=== PATIENT | female | born 1960 | race Two or more races ===

== ENCOUNTER 2017-11-24 08:57 | Outpatient (CLI) | payer OTHER ==
[~2017-11-24 08:57] MED LIST: ATACAND16 MG; KETO10TA2 PO; ORPHENADRINE C100 MG PO
== END 2017-11-24 09:27 | disposition home or self-care (01) ==
LOC: RAD 501 08:57
DX: M20.41 Other hammer toe(s) (acquired), right foot (principal); M20.42 Other hammer toe(s) (acquired), left foot

== ENCOUNTER 2024-10-07 08:46 | Emergency (ER) | payer OTHER ==
[~2024-10-07] VITALS: Ht 160 cm; Wt 75.3 kg
[2024-10-07] MEDS ORDERED: ROSUVASTATIN CA20 MG PO (09:14)
[2024-10-07] MEDS ORDERED: BARIUM SULFATE 450 ML ORAL.SUSP PO ONE ×2 (09:32→09:33)
[2024-10-07] MEDS ORDERED: ONDANSETRON HCL 2 MG/ML VIAL ONE ×5 (09:58→10:17)
[2024-10-07 10:21] LABS: BASO % 0.5 % (0.1-1.2); EOS # 0.04 (0.04-0.54); EOS % 0.3 % (0.7-7.0); HEMATOCRIT 43.3 % (34.1-44.9); HEMOGLOBIN 14.5 g/dL (11.2-15.7); LYMPH # 1.94 (1.18-3.74); LYMPH % 13.8 % (19.3-53.1); MEAN CORPUSCULAR HEMOGLOBIN 29.4 pg (25.6-32.2); MONO # 1.01 (0.24-0.82); MONO % 7.2 % (4.7-12.5); NEUT # 10.92 (1.56-6.13); NEUT % 77.8 % (34.0-71.1); PLATELET COUNT 299 K/uL (163-369); RED BLOOD COUNT 4.93 M/uL (3.93-5.22); RED CELL DISTRIBUTION WIDTH 13.3 % (11.6-14.4)
[2024-10-07 10:44] LABS: PH,URINE 5.5 (5.0-8.0); URINE APPEARANCE Clear; URINE BILIRRUBIN Small (NEGATIVE); URINE BLOOD Negative; URINE COLOR Dark Yellow; URINE GLUCOSE Negative (NEGATIVE); URINE LEUKOCYTE Small; URINE NITRATE Negative; URINE PROTEIN 30 (NEGATIVE)
[2024-10-07 10:53] LABS: URINE BACTERIA 72.2 uL (0.0-1933); URINE EPITHELIAL CELLS 23.7 uL (0.0-38.8); URINE RBC 46.9 uL (0.0-20.8); URINE WBC 5.6 uL (0.0-23.2)
[2024-10-07 11:03] LABS: CALCIUM 9.7 mg/dL (8.5-10.1); CREATININE SERUM 0.81 mg/dL (0.55-1.02); GFR 71.18; POTASSIUM 4.18 mEq/L (3.5-5.1)
[2024-10-07 11:35] LABS: URINE KETONE 40 (NEGATIVE)
[2024-10-07] MEDS ORDERED: PEPCID AC20 MG PO (17:06)
[2024-10-07] MEDS ORDERED: CEFUROXIME500 MG PO (17:06)
[2024-10-07] MEDS ORDERED: PYRIDIUM DS200 MG PO (17:06)
[2024-10-07] MEDS ORDERED: KETOROLAC TROMETHAMINE 30 MG VIAL ONE (17:14)
[2024-10-07] MEDS ORDERED: KETOROLAC TROMETHAMINE 30 MG VIAL IV ONE (17:15)
== END 2024-10-07 17:26 | disposition home or self-care (01) ==
LOC: ER 08:57
PROVIDERS: Emergency Medicine
DX: N39.0 Urinary tract infection, site not specified (principal); R10.9 Unspecified abdominal pain; I10 Essential (primary) hypertension; Z88.2 Allergy status to sulfonamides
CPT/HCPCS: 36415; 74177; Q9965